=== PATIENT | female | born 1980 | race Caucasian/White ===

== ENCOUNTER 2016-02-28 13:56 | Inpatient (IN) | payer MEDICARE, MEDICAID ==
[~2016-02-28] VITALS: Ht 162.6 cm; Wt 86.2 kg
[2016-02-28] VITALS (7 sets, daily range): BP systolic 96–113; BP diastolic 47–68
[~2016-02-28 13:56] MED LIST: ATIVAN0.5 MG ORAL; CLONAZEPAM0.125 MG PO; LITHIUM CARBON150 MG ORAL; METFORMIN HCL500 M1 ORAL; NITROFURANTOIN100 M2 ORAL; SERTRALINE HCL25 MG ORAL
--- NOTE | 2016-02-28 14:27 | Emergency Room Report ---
History of Present Illness General Chief Complaint: Overdose Present Illness HPI 35-year-old female presents to emergency department brought by ambulance from [facility] for possible overdose. Patient denies taking medication she reports history of multiple personality disorder patient reports anxiety. Patient states she is prescribed medications however she does not know their names. She denies SI/HI. She reports bleeding out of the left ear and states that her ear bleeds every 11 days. She denies nausea, vomiting, fevers, chills, decreased hearing. Denies ear pain. Patient reports use of Q- tips. Patient denies abdominal pain. Denies cough, asthma, or drug use. Denies CP, Palpitations, LOC, AMS, dizziness, Changes in Vision, Sensation, paresthesias, or a sudden severe headache. (Doretha Jaquez) Allergies: Coded Allergies: PREDNISONE (Verified Allergy, Unknown, 02/06/16) Patient History Past Medical History: see triage record Past Surgical History: none Pertinent Family History: none Now: No Reviewed Nursing Documentation: PMH: Agreed, PSxH: Agreed (Doretha Jaquez) Nursing Documentation-PMH Hx Diabetes: Yes (Doretha Jaquez) Review of Systems All Other Systems: negative except mentioned in HPI (Doretha Jaquez P.Christian) Physical Exam Vital Signs Date Time Temp Pulse Resp B/P Pulse Ox O2 Delivery O2 Flow Rate FiO2 02/28/16 13:47 86 16 111/65 96 02/28/16 13:57 97.9 Room Air Sp02 EP Interpretation: reviewed, normal General Appearance: no apparent distress, alert, GCS 15, non-toxic Head: normocephalic, atraumatic Eyes: bilateral eye PERRL, bilateral eye normal inspection ENT: hearing grossly normal, normal pharynx, no angioedema, normal voice, moist mucus membranes, other - left TM is erythematous with bleeding and purulent d/c noted. Neck: full range of motion, no bony tend, supple/symm/no masses Respiratory: chest non-tender, lungs clear, normal breath sounds, no rhonchi, no respiratory distress, no retraction, no accessory muscle use, no wheezing, rales - mild diffuse rales noted bilaterally with audible breathsounds. , speaking full sentences Cardiovascular #1: regular rate, rhythm, no edema Cardiovascular #2: 2+ radial (R), 2+ radial (L), 2+ dorsalis pedis (R), 2+ dorsalis pedis (L) Gastrointestinal: normal bowel sounds, non tender, soft, no mass, no organomegaly, no bruit, non-distended, no guarding, no hernia, no pulsatile mass , no rebound Rectal: deferred Genitourinary: normal inspection, no CVA tenderness Musculoskeletal: back normal, gait/station normal, normal range of motion, non- tender, no calf tenderness Neurologic: alert, oriented x3, responsive, motor strength/tone normal, sensory intact, cerebellar normal, normal gait, speech normal, no pronator, oriented Psychiatric: anxious, other Skin: normal color, no rash, well hydrated, diaphoresis Lymphatic: no adenopathy (Doretha Jaquez) Medical Decision Making PA Attestation Dr. Reese is my supervising Physician whom patient management has been discussed with. (Dorehta Jaquez) Diagnostic Impression: Primary Impression: Metabolic acidosis due to salicylate Additional Impression: Overdose of salicylate Qualified Codes: T39.094A - Poisoning by salicylates, undetermined, initial encounter ER Course Pt. presents to the ED BIB for suspected OD at psych board and care. no information provided or face sheet. -unknown amount, unknown time of Ingestion. - Incident was unwitnessed -Pt. reports hx of multiple personality disorder Ddx considered but are not limited to ingestion, OD, FB, anaphylaxis, oral / airway garcia, obstruction. Vital signs: are WNL, pt. is afebrile H&PE are most consistent with Possible OD Pt is diaphoretic, slightly agitated , Alert and oriented to self, place, and year. ORDERS: - Salicylates: 55mg/dL - Acetominophen: WNL less than 10mg/dL - CBC: WNL - CMP: metabolic acidosis with carbon dioxide at 10 and anion gap of 29 - Repeate Salicylate: 50 mg/dL ED INTERVENTIONS: -Pt placed into monitored bed. -Poison control was consulted: recommended : -50mg Activated charcoal, -D5W with 2 amps Sodium Bicarb. ( 3 amps were given as electronic order is not able to be edited) Labs showed low potassium : -20Meq KCL IV DISPOSITION: at this time pt. will be admitted to Dr. Wise for Salicylate overdose with metabolic acidosis Dr. Wise agreed to admit the pt. and to continue pt. care management. Labs Test 02/28/16 14:22 02/28/16 14:46 02/28/16 15:20 02/28/16 16:41 White Blood Count 7.3 K/UL (4.8-10.8) Red Blood Count 4.44 M/UL (4.20-5.40) Hemoglobin 10.4 G/DL (12.0-16.0) Hematocrit 34.1 % (37.0-47.0) Mean Corpuscular Volume 77 FL (80-99) Mean Corpuscular Hemoglobin 23.5 PG (27.0-31.0) Mean Corpuscular Hemoglobin Concent 30.6 G/DL (32.0-36.0) Red Cell Distribution Width 21.0 % (11.6-14.8) Platelet Count 172 K/UL (150-450) Mean Platelet Volume 6.4 FL (6.5-10.1) Neutrophils (%) (Auto) 81.5 % (45.0-75.0) Lymphocytes (%) (Auto) 10.7 % (20.0-45.0) Monocytes (%) (Auto) 6.8 % (1.0-10.0) Eosinophils (%) (Auto) 0.1 % (0.0-3.0) Basophils (%) (Auto) 0.9 % (0.0-2.0) Total Bilirubin 0.2 mg/dL (0.0-1.2) Aspartate Amino Transf (AST/SGOT) 53 U/L (5-40) Alanine Aminotransferase (ALT/SGPT) 70 U/L (3-33) Alkaline Phosphatase 113 U/L (35-104) Total Protein 7.0 g/dL (6.6-8.7) Albumin 3.7 g/dL (3.5-5.2) Globulin 3.3 g/dL Albumin/Globulin Ratio 1.1 (1.0-2.7) Acetaminophen Level < 10 ug/mL (10-30) Serum Alcohol < 10 mg/dL Urine HCG, Qualitative Negative Urine Opiates Screen Negative (NEGATIVE) Urine Barbiturates Screen Negative (NEGATIVE) Phencyclidine (PCP) Screen Negative (NEGATIVE) Urine Amphetamines Screen Negative (NEGATIVE) Urine Benzodiazepines Screen Negative (NEGATIVE) Urine Cocaine Screen Negative (NEGATIVE) Urine Marijuana (THC) Screen Negative (NEGATIVE) Arterial Blood pH 7.405 (7.350-7.450) Arterial Blood Partial Pressure CO2 19.2 mmHg (35.0-45.0) Arterial Blood Partial Pressure O2 87.6 mmHg (75.0-100.0) Arterial Blood HCO3 11.8 mmol/L (22.0-26.0) Arterial Blood Oxygen Saturation 95.8 % (92.0-98.0) Arterial Blood Base Excess -11.1 Chintan Test Positive Sodium Level 141 mEQ/L (135-145) Potassium Level 2.9 mEQ/L (3.4-4.9) Chloride Level 104 mEQ/L (98-107) Carbon Dioxide Level 10 mEQ/L (20-30) Anion Gap 27 (5-15) Blood Urea Nitrogen 13 mg/dL (7-23) Creatinine 0.7 mg/dL (0.5-0.9) Estimat Glomerular Filtration Rate > 60 mL/min (>60) Glucose Level 136 mg/dL (74-106) Calcium Level 7.4 mg/dL (8.6-10.2) Salicylates Level 50 mg/dL (10-30) Test 02/28/16 17:00 02/28/16 21:12 Urine Color Yellow Urine Appearance Clear Urine pH 5 (4.5-8.0) Urine Specific [place] 1.020 (1.005-1.035) Urine Protein 2+ (NEGATIVE) Urine Glucose (UA) Negative (NEGATIVE) Urine Ketones 4+ (NEGATIVE) Urine Occult Blood 1+ (NEGATIVE) Urine Nitrite Negative (NEGATIVE) Urine Bilirubin Negative (NEGATIVE) Urine Urobilinogen 1 MG/DL (0.0-1.0) Urine Leukocyte Esterase 1+ (NEGATIVE) Urine RBC 2-4 /HPF (0 - 2) Urine WBC 0-2 /HPF (0 - 2) Urine Squamous Epithelial Cells Few /LPF (NONE/OCC) Urine Bacteria Few /HPF (NONE) (Doretha Jaquez.) ER Course Patient was signed out to me. I discussed this case with poison control. Patient aspirin level is slowly going down. Her potassium is going down also. This is due to the bicarbonate drip. Was control center recommend continue bicarbonate drip until aspirin level is less than 30. Then we can stop it. (NIVIA HATFIELD M.D.) Last Vital Signs Date Time Temp Pulse Resp B/P Pulse Ox O2 Delivery O2 Flow Rate FiO2 02/28/16 13:58 89 15 Room Air 02/28/16 13:57 97.9 113/68 97 (Doretha Jaquez) Disposition: ADMITTED INPATIENT Condition: Serious Doretha Jaquez Feb 28, 2016 14:27 NIVIA HATFIELD M.D. Feb 29, 2016 06:34
[2016-02-28 14:34] LABS: BASOPHILS % (AUTO) 0.9 % (0.0-2.0); EOSINOPHILS % (AUTO) 0.1 % (0.0-3.0); LYMPHOCYTES % (AUTO) 10.7 % (20.0-45.0); MEAN CORPUSCULAR HEMOGLOBIN 23.5 PG (27.0-31.0); MEAN CORPUSCULAR HGB CONC 30.6 G/DL (32.0-36.0); MEAN CORPUSCULAR VOLUME 77 FL (80-99); MEAN PLATELET VOLUME 6.4 FL (6.5-10.1); MONOCYTES % (AUTO) 6.8 % (1.0-10.0); NEUTROPHILS % (AUTO) 81.5 % (45.0-75.0); PLATELET COUNT 172 K/UL (150-450); RED BLOOD COUNT 4.44 M/UL (4.20-5.40); WHITE BLOOD COUNT 7.3 K/UL (4.8-10.8)
[2016-02-28 14:55] LABS: ACETAMINOPHEN < 10 ug/mL (10-30); ALANINE AMINOTRANSFERASE 70 U/L (3-33); ALBUMIN/GLOBULIN RATIO 1.1 (1.0-2.7); ALCOHOL < 10 mg/dL; ANION GAP 28 (5-15); ASPARTATE AMINO TRANSFERASE 53 U/L (5-40); CARBON DIOXIDE 10 mEQ/L (20-30); CHLORIDE 101 mEQ/L (98-107); CREATININE 0.7 mg/dL (0.5-0.9); GLOMERULAR FILTRATION RATE > 60 mL/min (>60); HEMOLYSIS 10; POTASSIUM 3.1 mEQ/L (3.4-4.9); SODIUM 139 mEQ/L (135-145)
[2016-02-28] MEDS ORDERED: Activated Charcoal 50gm/240ml Btl ORAL ONE (15:30)
[2016-02-28] MEDS: Sodium Bicarbonate 150 ML in D5W 1000ml 1,000 ML IV SCH (16:17)
[2016-02-28 17:24] LABS: APPEARANCE,URINE CLEAR; KETONES,URINE 4+ (NEGATIVE); LEUKOCYTE ESTERASE ,URINE 1+ (NEGATIVE); NITRITE,URINE NEGATIVE (NEGATIVE); PH,URINE 5 (4.5-8.0); PROTEIN,URINE 2+ (NEGATIVE); UROBILINOGEN,URINE 1 MG/DL (0.0-1.0)
[2016-02-28 17:25] LABS: ABG ALLEN TEST POSITIVE; ABG BASE EXCESS -11.1; ABG PCO2 19.2 mmHg (35.0-45.0)
[2016-02-28 17:35] LABS: ANION GAP 27 (5-15); CALCIUM 7.4 mg/dL (8.6-10.2); CARBON DIOXIDE 10 mEQ/L (20-30); CHLORIDE 104 mEQ/L (98-107); CREATININE 0.7 mg/dL (0.5-0.9); GLOMERULAR FILTRATION RATE > 60 mL/min (>60); HEMOLYSIS 9; POTASSIUM 2.9 mEQ/L (3.4-4.9); SODIUM 141 mEQ/L (135-145)
[2016-02-28 17:40] LABS: WBC,URINE 0-2 /HPF (0 - 2)
[2016-02-28 17:43] LABS: BACTERIA,URINE FEW /HPF; SQUAMOUS EPITHELIAL CELL,UR FEW /LPF (NONE/OCC)
[2016-02-28] MEDS ORDERED: Milk of Magnesia 30ml Ud ORAL PRN (22:00)
--- NOTE | 2016-02-28 23:18 | History and Physical Report ---
DATE OF ADMISSION: 02/28/2016 REASON FOR ADMISSION: Salicylate toxicity. HISTORY OF PRESENT ILLNESS: Current the patient sent here from a psychiatric broad and care. The patient is delusional, unable to give a history. She was found to have salicylate overdose with toxic level 55, repeat 50 and was started on treatment in the emergency room. ALLERGIES: None known. MEDICATIONS: Include clonazepam, [place], lithium, metformin, sertraline. REVIEW OF SYSTEMS: The patient is delusional, unable to get any reasonable history from the patient. PHYSICAL EXAMINATION: GENERAL: The patient lying in bed, in the emergency room. VITAL SIGNS: Temperature 98.4, pulse 97, respirations 22, blood pressure 109/60, pulse oximetry 100% on room air. HEENT: Head eyes, ears, nose, throat, there is charcoal and dry blood in the mouth. Sclerae nonicteric. Ocular motions intact in all directions. NECK: No adenopathy. LUNGS: Clear. HEART: Regular rate and rhythm. No murmur. ABDOMEN: Soft without organomegaly. EXTREMITIES: No edema. NEUROLOGIC: Cranial nerves are intact. She moves all extremities. She is alert but disoriented and delusional LABORATORY AND DIAGNOSTIC DATA: Sodium 141, potassium 2.9, chloride 104, CO2 10, BUN 13, creatinine 0.7. IMPRESSION: 1. Salicylate overdose. 2. Metabolic acidosis. 3. Hypokalemia. 4. Schizophrenia. 5. History of taking lithium. We will get lithium level. 6. History of taking metformin, glucose was 133 and 136. PLAN: The patient be treated with IV fluids containing bicarbonate, replace potassium, watch her closely in view of her severe toxicity . Isaiah Wise M.D. DR: Sue JOB#: [id number] CC:
[2016-02-28 23:41] LABS: ABG PCO2 22.6 mmHg (35.0-45.0)
[2016-02-28 23:42] LABS: ABG ALLEN TEST POSITIVE; ABG BASE EXCESS -3.7
[2016-02-29] VITALS (20 sets, daily range): BP systolic 86–121; BP diastolic 42–85
[2016-02-29 00:01] LABS: ANION GAP 23 (5-15); CALCIUM 7.4 mg/dL (8.6-10.2); CARBON DIOXIDE 15 mEQ/L (20-30); CHLORIDE 102 mEQ/L (98-107); CREATININE 0.5 mg/dL (0.5-0.9); GLOMERULAR FILTRATION RATE > 60 mL/min (>60); HEMOLYSIS 2; SODIUM 140 mEQ/L (135-145)
[2016-02-29 00:06] LABS: POTASSIUM 2.5 mEQ/L (3.4-4.9)
[2016-02-29] MEDS ORDERED: Sodium Bicarbonate 8.4% 50ml Inj ONE ×2 (02:25→03:41)
[2016-02-29] MEDS ORDERED: Tubing IV Cassette IV ONE ×2 (02:26→03:42)
[2016-02-29 02:31] LABS: ANION GAP 19 (5-15); CALCIUM 7.5 mg/dL (8.6-10.2); CARBON DIOXIDE 18 mEQ/L (20-30); CHLORIDE 103 mEQ/L (98-107); CREATININE 0.5 mg/dL (0.5-0.9); GLOMERULAR FILTRATION RATE > 60 mL/min (>60); HEMOLYSIS 2; SODIUM 140 mEQ/L (135-145)
[2016-02-29 02:35] LABS: POTASSIUM 2.4 mEQ/L (3.4-4.9)
[2016-02-29] MEDS: D5W IV SCH ×2 (03:14→09:46)
[2016-02-29] MEDS: SODIUM BICARBONATE IV SCH ×2 (03:14→09:46)
[2016-02-29] MEDS: POTASSIUM CHLORIDE IV SCH ×2 (03:14→09:46)
[2016-02-29] MEDS ORDERED: Sodium Bicarbonate 8.4% 50ml Carp ONE (03:41)
[2016-02-29] MEDS: Sodium Bicarbonate 150 ML in D5W 1000ml 1,000 ML IV SCH ×2 (03:56→07:50)
[2016-02-29 06:47] LABS: ANION GAP 18 (5-15); CALCIUM 7.4 mg/dL (8.6-10.2); CARBON DIOXIDE 21 mEQ/L (20-30); CHLORIDE 102 mEQ/L (98-107); CREATININE 0.4 mg/dL (0.5-0.9); GLOMERULAR FILTRATION RATE > 60 mL/min (>60); HEMOLYSIS 6; POTASSIUM 2.8 mEQ/L (3.4-4.9); SODIUM 141 mEQ/L (135-145)
[2016-02-29] MEDS: Heparin 5000 units/ml inj SUBQ SCH ×2 (09:00→20:37)
[2016-02-29 09:27] LABS: BASOPHILS % (AUTO) 0.9 % (0.0-2.0); EOSINOPHILS % (AUTO) 0.1 % (0.0-3.0); MEAN CORPUSCULAR HEMOGLOBIN 23.6 PG (27.0-31.0); MEAN CORPUSCULAR HGB CONC 31.1 G/DL (32.0-36.0); MEAN CORPUSCULAR VOLUME 76 FL (80-99); MEAN PLATELET VOLUME 6.5 FL (6.5-10.1); MONOCYTES % (AUTO) 9.9 % (1.0-10.0); NEUTROPHILS % (AUTO) 69.2 % (45.0-75.0); PLATELET COUNT 153 K/UL (150-450); RED BLOOD COUNT 3.73 M/UL (4.20-5.40); RED CELL DISTRIBUTION WIDTH 20.2 % (11.6-14.8); WHITE BLOOD COUNT 5.2 K/UL (4.8-10.8)
[2016-02-29 09:33] LABS: ALANINE AMINOTRANSFERASE 45 U/L (3-33); ASPARTATE AMINO TRANSFERASE 30 U/L (5-40); CALCIUM 7.7 mg/dL (8.6-10.2); CARBON DIOXIDE 22 mEQ/L (20-30); CHLORIDE 103 mEQ/L (98-107); CREATININE 0.4 mg/dL (0.5-0.9); GLOMERULAR FILTRATION RATE > 60 mL/min (>60); HEMOLYSIS 1; MAGNESIUM 1.7 mg/dL (1.7-2.5); SODIUM 142 mEQ/L (135-145); TOTAL PROTEIN 6.1 g/dL (6.6-8.7)
[2016-02-29 09:34] LABS: INR 2.4 (0.9-1.1); PROTHROMBIN TIME 25.3 SEC (9.30-11.50)
[2016-02-29 09:38] LABS: ANION GAP 17 (5-15); POTASSIUM 2.8 mEQ/L (3.4-4.9)
[2016-02-29 10:18] LABS: ABG PCO2 29.1 mmHg (35.0-45.0)
[2016-02-29 10:19] LABS: ABG ALLEN TEST POSITIVE; ABG BASE EXCESS 0.8
--- NOTE | 2016-02-29 10:22 | General Progress Note ---
Assessment/Plan Problem List: (1) Hypokalemia ICD Codes: E87.6 - Hypokalemia SNOMED: 13459857 (2) Schizophrenia ICD Codes: F20.9 - Schizophrenia, unspecified SNOMED: 28371880 (3) Overdose of salicylate ICD Codes: T39.091A - Poisoning by salicylates, accidental (unintentional), initial encounter SNOMED: 964748238, 7778698 Qualifiers: Qualified Codes: T39.094A - Poisoning by salicylates, undetermined, initial encounter (4) Metabolic acidosis due to salicylate ICD Codes: E87.2 - Acidosis SNOMED: 20692405, 0962143 Assessment/Plan lab better, give kcl, transfer out of icu, stable for psych transfer Subjective Constitutional: Reports: weakness HEENT: Reports: no symptoms Cardiovascular: Reports: no symptoms Respiratory: Reports: no symptoms Gastrointestinal/Abdominal: Reports: no symptoms Genitourinary: Reports: no symptoms Endocrine: Reports: no symptoms Hematologic/Lymphatic: Reports: anemia Allergies: Coded Allergies: PREDNISONE (Verified Allergy, Unknown, 02/06/16) Objective Last 24 Hour Vital Signs Date Time Temp Pulse Resp B/P Pulse Ox O2 Delivery O2 Flow Rate FiO2 02/29/16 07:33 94 23 106/62 99 Room Air 02/29/16 06:10 97 22 92/55 99 Room Air 02/29/16 04:40 106 14 96/64 100 Room Air 02/29/16 02:49 96 21 93/57 100 Room Air 02/29/16 01:05 93 23 86/42 100 Room Air 02/28/16 23:30 98.0 96 24 96/47 100 Room Air 02/28/16 20:50 97.8 96 24 112/58 100 Room Air 02/28/16 19:50 97.8 97 21 100/54 100 Room Air 02/28/16 18:50 98.4 98 22 109/60 100 Room Air 02/28/16 18:13 98.4 98 23 105/58 100 Room Air 02/28/16 17:17 98.0 89 20 104/59 100 Room Air 02/28/16 13:58 89 15 Room Air 02/28/16 13:57 97.9 89 15 113/68 97 Room Air 02/28/16 13:47 86 16 111/65 96 Intake and Output 02/28/16 02/29/16 18:59 06:59 Intake Total 500 ml 1250 ml Balance 500 ml 1250 ml Intake IV Total 500 ml 1250 ml Laboratory Tests 02/28/16 14:22: White Blood Count 7.3, Red Blood Count 4.44, Hemoglobin 10.4L, Hematocrit 34.1L , Mean Corpuscular Volume 77L, Mean Corpuscular Hemoglobin 23.5L, Mean Corpuscular Hemoglobin Concent 30.6L, Red Cell Distribution Width 21.0H, Platelet Count 172, Mean Platelet Volume 6.4L, Neutrophils (%) (Auto) 81.5H, Lymphocytes (%) (Auto) 10.7L, Monocytes (%) (Auto) 6.8, Eosinophils (%) (Auto) 0.1, Basophils (%) (Auto) 0.9, Sodium Level 139, Potassium Level 3.1L, Chloride Level 101, Carbon Dioxide Level 10L, Anion Gap 28H, Blood Urea Nitrogen 13, Creatinine 0.7, Estimat Glomerular Filtration Rate > 60, Glucose Level 133H, Calcium Level 8.0L, Total Bilirubin 0.2, Aspartate Amino Transf (AST/SGOT) 53H, Alanine Aminotransferase (ALT/SGPT) 70H, Alkaline Phosphatase 113H, Total Protein 7.0, Albumin 3.7, Globulin 3.3, Albumin/Globulin Ratio 1.1, Salicylates Level 55*H, Acetaminophen Level < 10L, Serum Alcohol < 10 02/28/16 14:46: Urine HCG, Qualitative Negative, Urine Opiates Screen Negative, Urine Barbiturates Screen Negative, Phencyclidine (PCP) Screen Negative, Urine Amphetamines Screen Negative, Urine Benzodiazepines Screen Negative, Urine Cocaine Screen Negative, Urine Marijuana (THC) Screen Negative 02/28/16 15:20: Arterial Blood pH 7.405, Arterial Blood Partial Pressure CO2 19.2*L, Arterial Blood Partial Pressure O2 87.6, Arterial Blood HCO3 11.8L, Arterial Blood Oxygen Saturation 95.8, Arterial Blood Base Excess -11.1, Chint[place] Test Positive 02/28/16 16:41: Sodium Level 141, Potassium Level 2.9L, Chloride Level 104, Carbon Dioxide Level 10L, Anion Gap 27H, Blood Urea Nitrogen 13, Creatinine 0.7, Estimat Glomerular Filtration Rate > 60, Glucose Level 136H, Calcium Level 7.4L, Salicylates Level 50*H 02/28/16 17:00: Urine Color Yellow, Urine Appearance Clear, Urine pH 5, Urine Specific [place] 1.020, Urine Protein 2+H, Urine Glucose (UA) Negative, Urine Ketones 4+H, Urine Occult Blood 1+H, Urine Nitrite Negative, Urine Bilirubin Negative, Urine Urobilinogen 1H, Urine Leukocyte Esterase 1+H, Urine RBC 2-4H, Urine WBC 0-2, Urine Squamous Epithelial Cells Few, Urine Bacteria Few 02/28/16 21:12: [place] Level [Pending] 02/28/16 23:17: Arterial Blood pH 7.519H, Arterial Blood Partial Pressure CO2 22.6*L, Arterial Blood Partial Pressure O2 90.4, Arterial Blood HCO3 18.0L, Arterial Blood Oxygen Saturation 96.5, Arterial Blood Base Excess -3.7, Chintan Test Positive 02/28/16 23:34: Sodium Level 140, Potassium Level 2.5*L, Chloride Level 102, Carbon Dioxide Level 15L, Anion Gap 23H, Blood Urea Nitrogen 9, Creatinine 0.5, Estimat Glomerular Filtration Rate > 60, Glucose Level 140H, Calcium Level 7.4L, Salicylates Level 42*H 02/29/16 02:05: Sodium Level 140, Potassium Level 2.4*L, Chloride Level 103, Carbon Dioxide Level 18L, Anion Gap 19H, Blood Urea Nitrogen 7, Creatinine 0.5, Estimat Glomerular Filtration Rate > 60, Glucose Level 103, Calcium Level 7.5L, Salicylates Level 38H 02/29/16 05:50: Sodium Level 141, Potassium Level 2.8L, Chloride Level 102, Carbon Dioxide Level 21, Anion Gap 18H, Blood Urea Nitrogen 5L, Creatinine 0.4L, Estimat Glomerular Filtration Rate > 60, Glucose Level 182H, Calcium Level 7.4L, Salicylates Level 32H 02/29/16 09:00: Sodium Level 142, Potassium Level 2.8L, Chloride Level 103, Carbon Dioxide Level 22, Anion Gap 17H, Blood Urea Nitrogen 4L, Creatinine 0.4L, Estimat Glomerular Filtration Rate > 60, Glucose Level 153H, Calcium Level 7.7L, Salicylates Level 19, White Blood Count 5.2, Red Blood Count 3.73L, Hemoglobin 8.8L, Hematocrit 28.3L, Mean Corpuscular Volume 76L, Mean Corpuscular Hemoglobin 23.6L, Mean Corpuscular Hemoglobin Concent 31.1L, Red Cell Distribution Width 20.2H, Platelet Count 153, Mean Platelet Volume 6.5, Neutrophils (%) (Auto) 69.2, Lymphocytes (%) (Auto) 20.0, Monocytes (%) (Auto) 9.9, Eosinophils (%) (Auto) 0.1, Basophils (%) (Auto) 0.9, Prothrombin Time 25.3H, Prothromb Time International Ratio 2.4H, Activated Partial Thromboplast Time 35H, Magnesium Level 1.7, Total Bilirubin 0.2, Aspartate Amino Transf (AST/ SGOT) 30, Alanine Aminotransferase (ALT/SGPT) 45H, Alkaline Phosphatase 90, Total Creatine Kinase 99, Total Protein 6.1L, Albumin 3.1L, Globulin 3.0, Albumin/Globulin Ratio 1.0, [place] Level [Pending] 02/29/16 10:10: Arterial Blood pH 7.520H, Arterial Blood Partial Pressure CO2 29.1L, Arterial Blood Partial Pressure O2 75.4, Arterial Blood HCO3 23.2, Arterial Blood Oxygen Saturation 94.7, Arterial Blood Base Excess 0.8, Chintan Test Positive Height (Feet): 5 Height (Inches): 4.00 Weight (Pounds): 190 General Appearance: obese EENT: PERRL/EOMI Neck: non-tender Cardiovascular: regular rhythm Respiratory/Chest: lungs clear Abdomen: non tender, no organomegaly Edema: no edema noted Arm (L), no edema noted Arm (R), no edema noted Leg (L), no edema noted Leg (R), no edema noted Pedal (L), no edema noted Pedal (R), no edema noted Generalized FELIX HAN Feb 29, 2016 10:22
[2016-02-29] MEDS: NS w/KCl 40mEq 1,000 ML IV SCH ×2 (12:17→19:00)
[2016-03-01] VITALS (12 sets, daily range): BP systolic 110–127; BP diastolic 55–87
[2016-03-01] MEDS: NS w/KCl 40mEq 1,000 ML IV SCH ×2 (02:22→11:00)
[2016-03-01] MEDS: Heparin 5000 units/ml inj SUBQ SCH ×2 (08:43→20:33)
--- NOTE | 2016-03-01 09:55 | General Progress Note ---
Assessment/Plan Problem List: (1) Hypokalemia ICD Codes: E87.6 - Hypokalemia SNOMED: 37488302 (2) Schizophrenia ICD Codes: F20.9 - Schizophrenia, unspecified SNOMED: 92805101 (3) Overdose of salicylate ICD Codes: T39.091A - Poisoning by salicylates, accidental (unintentional), initial encounter SNOMED: 649006654, 8718039 Qualifiers: Qualified Codes: T39.094A - Poisoning by salicylates, undetermined, initial encounter (4) Metabolic acidosis due to salicylate ICD Codes: E87.2 - Acidosis SNOMED: 72784619, 0072254 Assessment/Plan lab better, give kcl, transfer out of icu, stable for psych transfer Subjective Constitutional: Reports: weakness HEENT: Reports: no symptoms Cardiovascular: Reports: no symptoms Respiratory: Reports: cough Gastrointestinal/Abdominal: Reports: no symptoms Genitourinary: Reports: no symptoms Neurologic/Psychiatric: Reports: no symptoms Endocrine: Reports: no symptoms Hematologic/Lymphatic: Reports: no symptoms Allergies: Coded Allergies: PREDNISONE (Verified Allergy, Unknown, 02/06/16) Objective Last 24 Hour Vital Signs Date Time Temp Pulse Resp B/P Pulse Ox O2 Delivery O2 Flow Rate FiO2 03/01/16 06:00 77 24 114/74 96 Room Air 03/01/16 05:01 97.8 81 24 120/85 96 Room Air 03/01/16 05:00 86 24 121/85 96 Room Air 03/01/16 04:00 97.8 86 24 120/85 96 Room Air 03/01/16 04:00 81 03/01/16 03:00 87 24 112/80 96 Room Air 03/01/16 02:00 88 24 116/84 96 Room Air 03/01/16 01:00 90 24 110/84 96 Room Air 03/01/16 00:00 98.0 89 24 112/84 96 Room Air 03/01/16 00:00 86 02/29/16 23:00 89 21 115/80 96 Room Air 02/29/16 22:00 86 24 100/65 97 Room Air 02/29/16 21:00 90 19 97/63 97 Room Air 02/29/16 20:00 94 02/29/16 20:00 96.9 94 19 113/67 96 Room Air 02/29/16 19:00 90 19 108/68 96 Room Air 02/29/16 18:00 88 18 113/80 97 Room Air 02/29/16 17:00 100 18 91/53 98 Room Air 02/29/16 16:00 98.5 91 20 91/53 91 Room Air 02/29/16 16:00 91 02/29/16 15:00 99 18 111/66 98 Room Air 02/29/16 14:00 96 20 110/70 99 Room Air 02/29/16 13:00 98 16 117/76 96 Room Air 02/29/16 12:00 99 02/29/16 12:00 97.5 90 17 121/72 96 Room Air 02/29/16 11:00 103 21 107/66 100 Room Air 02/29/16 10:00 100 20 111/85 99 Room Air Intake and Output 02/29/16 03/01/16 19:00 07:00 Intake Total 2535 ml 1310 ml Balance 2535 ml 1310 ml Intake Oral 1235 ml 60 ml IV Total 1300 ml 1250 ml # Voids 4 1 # Bowel Movements 3 3 Laboratory Tests 02/29/16 10:10: Arterial Blood pH 7.520H, Arterial Blood Partial Pressure CO2 29.1L, Arterial Blood Partial Pressure O2 75.4, Arterial Blood HCO3 23.2, Arterial Blood Oxygen Saturation 94.7, Arterial Blood Base Excess 0.8, Chintan Test Positive Height (Feet): 5 Height (Inches): 4.00 Weight (Pounds): 190 General Appearance: obese EENT: PERRL/EOMI Neck: non-tender Cardiovascular: normal rate Respiratory/Chest: lungs clear Abdomen: non tender, soft FELIX HAN Mar 01, 2016 09:55
[2016-03-01] MEDS: Haloperidol 5mg/ml Inj IM PRN ×2 (10:45→14:41)
[2016-03-01 11:32] LABS: ANION GAP 13 (5-15); CALCIUM 8.2 mg/dL (8.6-10.2); CARBON DIOXIDE 19 mEQ/L (20-30); CHLORIDE 110 mEQ/L (98-107); CREATININE 0.4 mg/dL (0.5-0.9); GLOMERULAR FILTRATION RATE > 60 mL/min (>60); HEMOLYSIS 5; POTASSIUM 4.2 mEQ/L (3.4-4.9); SODIUM 142 mEQ/L (135-145)
[2016-03-01] MEDS ORDERED: Heparin 5000 units/ml inj SUBQ SCH (21:00)
[2016-03-01] MEDS ORDERED: Milk of Magnesia 30ml Ud ORAL PRN ×2 (22:00)
[2016-03-01] MEDS ORDERED: Haloperidol 5mg/ml Inj IM PRN ×2 (22:45)
[2016-03-02 00:09] VITALS: BP 129/67
[2016-03-02 04:00] VITALS: BP 133/69
[2016-03-02 05:51] LABS: ANION GAP 15 (5-15); CALCIUM 8.5 mg/dL (8.6-10.2); CARBON DIOXIDE 17 mEQ/L (20-30); CHLORIDE 107 mEQ/L (98-107); CREATININE 0.4 mg/dL (0.5-0.9); GLOMERULAR FILTRATION RATE > 60 mL/min (>60); HEMOLYSIS 7; POTASSIUM 4.2 mEQ/L (3.4-4.9); SODIUM 139 mEQ/L (135-145)
[2016-03-02 08:03] VITALS: BP 116/83
[2016-03-02] MEDS: Heparin 5000 units/ml inj SUBQ SCH (09:00)
[2016-03-02 12:00] VITALS: BP 128/84
[2016-03-02 15:49] VITALS: BP 131/89
[2016-03-02] MEDS ORDERED: HALOPERIDO50 MG/1 M1 IM (16:56)
[2016-03-02] MEDS ORDERED: HEPARIN SO5000 UNIT2 SUBQ (16:56)
[2016-03-02] MEDS ORDERED: MILK OF MA400 MG/51 ORAL (16:57)
[2016-03-02] MEDS ORDERED: ZYPREXA10 MG ORAL (16:59)
[2016-03-02] MEDS ORDERED: ZANTAC150 MG ORAL (17:09)
[2016-03-02] MEDS ORDERED: NS 275ml ONE (17:57)
--- NOTE | 2016-03-03 03:58 | Discharge Summary ---
DATE OF ADMISSION: 02/28/2016 DATE OF DISCHARGE: 03/02/2016 PERTINENT HISTORY: The patient comes from a psychiatric board and care with salicylate toxicity and metabolic acidosis. PERTINENT PHYSICAL FINDINGS: GENERAL: The patient is alert there is charcoal in the mouth. LUNGS: Clear. HEART: Regular rhythm. ABDOMEN: Soft. NEUROLOGIC: She is alert and responsive, but delusional. No focal findings. COURSE IN THE HOSPITAL: The patient had metabolic acidosis. Given treatment with bicarbonate drip for salicylate toxicity. The salicylate level came down to nontoxic levels and metabolic acidosis cleared. She did have anemia, which was asymptomatic. She had symptoms of a upper respiratory infection. Arrangements were made to send her to a psychiatric facility in view of her overdose and this was arranged with case briefer. She was transferred in stable condition to a psychiatric facility. FINAL DIAGNOSES: 1. Salicylate toxicity. 2. Metabolic acidosis secondary to above. 3. Hypokalemia. 4. Iron-deficiency anemia. 5. Schizophrenia. DISCHARGE DISPOSITION: She is discharged to the psychiatric facility on a regular diet. Medications will be reassessed at the psychiatric facility. Isaiah Wise M.D. DR: Rober JOB#: [id number] CC:
== END 2016-03-02 17:30 | DRG 918 ==
LOC: EDBD 13:56 → EMR 14:25 → ICU 16:04 → EDBEDREQ 16:37 → 4W 03-01 18:55
DX: T39.011A Poisoning by aspirin, accidental (unintentional), initial encounter (principal); E87.2 Acidosis; F20.9 Schizophrenia, unspecified; E87.6 Hypokalemia; Y92.099 Unspecified place in other non-institutional residence as the place of occurrence of the external cause; D50.9 Iron deficiency anemia, unspecified; Z88.8 Allergy status to other drugs, medicaments and biological substances
CPT/HCPCS: 36415; 36600; 80048; 80053; 80178; 80300; 80329; 81003; 81025; 82550; 82803; 83735; 85025; 85610; 85730; 87081; J8499